=== PATIENT | male | born 1995 | race Caucasian/White ===

== ENCOUNTER 2019-07-23 13:46 | Emergency (ER) | payer SELFPAY ==
[~2019-07-23] VITALS: Ht 185.4 cm; Wt 90.7 kg
[2019-07-23 14:25] LABS: BASO # 0.1 x10^3/uL (0.0-0.2); BASO % 1 % (0-3); EOS # 0.2 x10^3/uL (0.0-0.7); EOS % 2 % (0-3); HEMATOCRIT 43.8 % (39.0-53.0); HEMOGLOBIN 15.4 g/dL (13.0-17.5); LYMPH % 40 % (24-48); MEAN CORPUSCULAR HEMOGLOBIN 29 pg (25-35); MEAN CORPUSCULAR HGB CONC 35 g/dL (31-37); MEAN CORPUSCULAR VOLUME 81 fL (79-100); MONO # 0.7 x10^3/uL (0.0-1.1); MONO % 7 % (0-9); NEUT % 51 % (31-73); PLATELET COUNT 208 x10^3/uL (140-400); RED BLOOD COUNT 5.42 x10^6/uL (4.30-5.70)
[2019-07-23] MEDS ORDERED: IV NORMAL SALINE 1,000ML 1,000 ML IV ONE (14:30)
[2019-07-23] MEDS ORDERED: ONDANSETRON PF 4 MG/2 ML VIAL. IVP ONE (14:30)
[2019-07-23] MEDS ORDERED: MORPHINE SULFATE 4 MG/ML DISP.SYRIN. IV ONE (14:30)
--- NOTE | 2019-07-23 14:30 | PHYS DOC ---
Past History Past Medical History: No Pertinent History Past Surgical History: Other Additional Past Surgical Histo: WISDOM TEETH Additional Smoking Information: VAPES Alcohol Use: Heavy Drug Use: None Adult General Chief Complaint Chief Complaint: GROIN PAIN HPI HPI 23-year-old male presents with sudden onset right testicular pain. The patient was walking up stairs at work when he started to have pain in the right side of his groin. The pain rapidly increased in intensity. He denies trauma or any heavy lifting. He is never had this before. He is currently having moderate to severe pain and is nauseated. He's never had this before. Denies fever or chills. Review of Systems Review of Systems Constitutional: Denies fever or chills [] Eyes: Denies change in visual acuity, redness, or eye pain [] HENT: Denies nasal congestion or sore throat [] Respiratory: Denies cough or shortness of breath [] Cardiovascular: No additional information not addressed in HPI [] GI: Denies abdominal pain, nausea, vomiting, bloody stools or diarrhea [] : Right testicular pain[] Musculoskeletal: Denies back pain or joint pain [] Integument: Denies rash or skin lesions [] Neurologic: Denies headache, focal weakness or sensory changes [] Endocrine: Denies polyuria or polydipsia [] All other systems were reviewed and found to be within normal limits, except as documented in this note. Allergies Allergies Allergies Coded Allergies Type Severity Reaction Last Updated Verified No Known Drug Allergies 07/23/19 No Physical Exam Physical Exam Constitutional: Well developed, well nourished, mild acute distress, non-toxic appearance. [] HENT: Normocephalic, atraumatic, bilateral external ears normal, oropharynx moist, no oral exudates, nose normal. [] Eyes: PERRLA, EOMI, conjunctiva normal, no discharge. [] Neck: Normal range of motion, no tenderness, supple, no stridor. [] Cardiovascular:Heart rate regular rhythm, no murmur [] Lungs & Thorax: Bilateral breath sounds clear to auscultation [] Abdomen: Bowel sounds normal, soft, no tenderness, no masses, no pulsatile masses. [] Skin: Warm, dry, no erythema, no rash. [] Back: No tenderness, no CVA tenderness. [] Extremities: No tenderness, no cyanosis, no clubbing, ROM intact, no edema. [] Neurologic: Alert and oriented X 3, normal motor function, normal sensory function, no focal deficits noted. [] Psychologic: Affect normal, judgement normal, mood normal. : Normal external exam, descended testicles bilaterally, tenderness to palpation of both testicles, pain with palpation of right inguinal canal. [] Current Patient Data Vital Signs Vital Signs Date Time Temp Pulse Resp B/P (MAP) Pulse Ox O2 Delivery O2 Flow Rate FiO2 07/23/19 13:55 98.1 75 24 97 Room Air EKG EKG [] Radiology/Procedures Radiology/Procedures [] Impressions: EXAM: Scrotal Ultrasound INDICATION: Right testicular pain of sudden onset ? TECHNIQUE: Real-time ultrasound of the scrotum with permanent freeze-frame documentation. ? COMPARISON:?None. ? FINDINGS: RIGHT: TESTICLE: 4.4 x 2.6 x 2.1 cm. Unremarkable. Normal blood flow. EPIDIDYMIS: Unremarkable. OTHER: No varicocele or hydrocele. LEFT: TESTICLE: 4.6 x 2.8 x 1.9 cm. Unremarkable. Normal blood flow. EPIDIDYMIS: Small 3.6 mm cyst at the head. OTHER: No varicocele or hydrocele. SCROTAL WALL: Unremarkable. IMPRESSION: ? Normal scrotal ultrasound. No evidence of testicular torsion. Electronically signed by: Shelia Flores MD (07/23/2019 2:28 PM) [facility] DICTATED AND SIGNED BY: SHELIA FLORES MD DATE: 07/23/19 1428 CC: RALPH SHANNON DO; PCP,NO ~ CT ABD PELV W/ IV CONTRST ONLY Indication: Right flank pain. Right testicular pain. Exposure: One or more of the following individualized dose reduction techniques were utilized for this examination: 1. Automated exposure control 2. Adjustment of the mA and/or kV according to patient size 3. Use of iterative reconstruction technique. Technique: Intravenous contrast was given. No oral contrast per request. Comparison: None FINDINGS: Lung bases are clear. Liver appears unremarkable. Spleen upper limits normal in size, 12.5 cm. Pancreas is difficult to separate from adjacent unopacified bowel loops but no definite attenuation abnormality. No adrenal mass. Kidneys demonstrate symmetric enhancement. No evidence of mass or hydronephrosis. No calcified gallstone. Aorta is nonaneurysmal. No evidence of pathologic lymph node enlargement. Stomach is not distended. No significant small bowel distention. No evidence of acute colitis. The appendix is normal. No evidence of ascites. No evidence of pneumoperitoneum. Urinary bladder is unopacified but appears unremarkable. No evidence of abdominal wall hernia. Vertebral body height and alignment are intact. No evidence of aggressive bone destruction. IMPRESSION: No evidence of acute intra-abdominal process. Electronically signed by: Luis Alfredo Weiner MD (07/23/2019 3:14 PM) [id number] DICTATED AND SIGNED BY: LUIS ALFREDO WEINER MD DATE: 07/23/19 1514 CC: RALPH SHANNON DO; PCP,NO ~ Course & Med Decision Making Course & Med Decision Making Pertinent Labs and Imaging studies reviewed. (See chart for details) The patient's scrotal ultrasound was negative for torsion or other abnormal findings. I also performed an abdominal CT to rule out incarcerated hernia. There are no abnormal findings on the CT scan. Labs are unremarkable. His urine is unremarkable. I will go and treat the patient for 7 days with levofloxacin presuming epididymitis. He is stable for discharge at this time. [] Dragon Disclaimer Dragon Disclaimer This electronic medical record was generated, in whole or in part, using a voice recognition dictation system. Departure Departure: Impression: Primary Impression: Epididymitis Disposition: HOME, SELF-CARE Condition: STABLE Referrals: PCP,ALBIN (PCP) Patient Instructions: Epididymitis Scripts Levofloxacin (LEVOFLOXACIN) 750 Mg Tablet 1 TAB PO DAILY for epididymitis, #7 TAB Prov: RALPH SHANNON DO 07/23/19 RALPH SHANNON DO Jul 23, 2019 14:30
[2019-07-23 14:33] LABS: CALCIUM 8.9 mg/dL (8.5-10.1); CREATININE 1.2 mg/dL (0.7-1.3); GFR 73.8; POTASSIUM 3.5 mmol/L (3.5-5.1)
[2019-07-23 14:39] LABS: ALBUMIN 4.1 g/dL (3.4-5.0); ALBUMIN/GLOBULIN RATIO 1.1 (1.0-1.7); TOTAL BILIRUBIN 0.4 mg/dL (0.2-1.0); TOTAL PROTEIN 7.7 g/dL (6.4-8.2)
[2019-07-23] MEDS ORDERED: IOHEXOL 300 MG/ML 75 ML VIAL. IV ONE (15:00)
[2019-07-23 15:06] LABS: BILIRUBIN,URINE NEG (NEG); CLARITY,URINE CLEAR; COLOR,URINE YELLOW; GLUCOSE,URINE NEG (NEG)
[2019-07-23 15:07] LABS: BACTERIA,URINE 0 /HPF (0-FEW); NITRITE,URINE NEG (NEG); RBC,URINE OCC /HPF (0-2); SQUAMOUS EPITHELIAL CELL,UR FEW /LPF; UROBILINOGEN,URINE 0.2 mg/dL (0.2 mg/dL); WBC,URINE OCC /HPF (0-4)
--- NOTE | 2019-07-23 15:17 | RAD ---
CT ABD PELV W/ IV CONTRST ONLY Indication: Right flank pain. Right testicular pain. Exposure: One or more of the following individualized dose reduction techniques were utilized for this examination: 1. Automated exposure control 2. Adjustment of the mA and/or kV according to patient size 3. Use of iterative reconstruction technique. Technique: Intravenous contrast was given. No oral contrast per request. Comparison: None FINDINGS: Lung bases are clear. Liver appears unremarkable. Spleen upper limits normal in size, 12.5 cm. Pancreas is difficult to separate from adjacent unopacified bowel loops but no definite attenuation abnormality. No adrenal mass. Kidneys demonstrate symmetric enhancement. No evidence of mass or hydronephrosis. No calcified gallstone. Aorta is nonaneurysmal. No evidence of pathologic lymph node enlargement. Stomach is not distended. No significant small bowel distention. No evidence of acute colitis. The appendix is normal. No evidence of ascites. No evidence of pneumoperitoneum. Urinary bladder is unopacified but appears unremarkable. No evidence of abdominal wall hernia. Vertebral body height and alignment are intact. No evidence of aggressive bone destruction. IMPRESSION: No evidence of acute intra-abdominal process. Electronically signed by: Luis Alfredo Weiner MD (07/23/2019 3:14 PM) [id number]
[2019-07-23 15:28] VITALS: BP 124/76
[2019-07-23] MEDS ORDERED: LEVO750T5 PO (15:35)
== END 2019-07-23 15:47 | disposition home or self-care (01) ==
LOC: ER 13:46
DX: N45.1 Epididymitis (principal); F17.200 Nicotine dependence, unspecified, uncomplicated; F10.20 Alcohol dependence, uncomplicated; Y90.9 Presence of alcohol in blood, level not specified
CPT/HCPCS: 36415; 74177; 76870; 80053; 81001; 85025; 96374; 96375; 99285; J2270; J2405; Q9967; J7030